=== PATIENT | male | born 1990 | race Caucasian/White ===

== ENCOUNTER 2020-06-04 04:16 | Observation (INO) ==
[2020-06-04] MEDS ORDERED: ONDANSETRON 4 MG/2 ML VIAL IV STA (04:43)
[2020-06-04] MEDS ORDERED: PANTOPRAZOLE 40 MG VIAL IV STA (04:43)
[2020-06-04] MEDS ORDERED: SODIUM CHLORIDE 0.9% 1,000 ML IV STA ×3 (04:43→06:50)
[2020-06-04 05:08] LABS: Basophils % 0.3 % (0.0-0.8); Eosinophils % 0.3 % (0.00-10.9); Hematocrit 46.7 VOL% (42.0-52.0); Hemoglobin 16.9 GM/DL (14.0-18.0); Immature Granulocytes % 0.5 %; Immature Granulocytes Absolute 0.04 #; Lymphocytes # 2.8 10*3/uL (1.4-4.0); Lymphocytes % 31.3 % (21.2-54.2); Mean Corpuscular HGB Conc 36.2 GM/DL (32-36); Mean Corpuscular Volume 89.1 FL (87-102); Mean Platelet Volume 10.6 FL (9.6-12.0); Monocytes % 5.8 % (1.7-12.7); Neutrophils % 61.8 % (38.7-73.9); Platelet Count 316 T/CUMM (130-400); Red Blood Count 5.24 MC/CUMM (3.8-5.5); Red Cell Distribution Width 11.4 % (9.3-17.3); White Blood Count 8.9 T/CUMM (4-12)
[2020-06-04 05:25] LABS: Alanine Aminotransferase 43 U/L (16-61); Albumin 4.5 G/DL (3.4-5.0); Alkaline Phosphatase 91 U/L (45-117); Amylase 68 U/L (25-115); Aspartate Amino Transferase 28 U/L (0-37); Blood Urea Nitrogen 9 MG/DL (7-18); Calcium 9.8 MG/DL (8.5-10.1); Estimated Glom Filtration Rate 137 ML/MIN; Glucose 103 MG/DL (74-106); Osmolality,Calculated 281.1 MOS/KG (273-304)
[2020-06-04] MEDS ORDERED: HYDROmorphone 2 MG/1 ML VIAL IV ONE (05:26)
[2020-06-04] MEDS ORDERED: DICYCLOMINE 20 MG/2 ML AMP IM ONE (05:34)
[2020-06-04 07:57] LABS: Bilirubin,Urine Negative (Negative); Blood, Urine Negative (Negative); Glucose,Urine (UA) Negative (Negative); Ketones,Urine 20 mg/dL (Negative); Mucus,Urine Occasional /LPF (Occasional); Nitrite,Urine Negative (Negative); Protein,Urine Negative; RBC,Urine 2 /HPF (0-4); Urine Appearance CLEAR (Clear); Urine Color Yellow (Yellow); Urine Specific Gravity > 1.060 (1.001-1.035); Urine Urobilinogen < 2.0 EU/DL (0.2-1.0); WBC,Urine <1 /HPF (0-6)
[2020-06-04] MEDS ORDERED: PROMETHAZINE 25 MG/1 ML VIAL IM ONE (08:49)
[2020-06-04] MEDS ORDERED: hydrALAZINE 20 MG/1 ML VIAL IV PRN (08:52)
[2020-06-04] MEDS ORDERED: PROMETHAZINE 25 MG/1 ML VIAL IM PRN (08:52)
[2020-06-04] MEDS ORDERED: ONDANSETRON 4 MG/2 ML VIAL IV PRN (08:52)
[2020-06-04] MEDS ORDERED: GLUCAGON 1 MG VIAL IM PRN (08:52)
[2020-06-04] MEDS ORDERED: DEXTROSE 50% 25 GM/50 ML VIAL IV PRN (08:52)
[2020-06-04] MEDS: SODIUM CHLORIDE 0.9% 1,000 ML IV SCH ×2 (09:00→18:41)
[2020-06-04 09:19] LABS: Hematocrit 43.1 VOL% (42.0-52.0); Hemoglobin 15.2 GM/DL (14.0-18.0)
[2020-06-04] MEDS ORDERED: INFLUENZA VIRUS VACCINE 0.5 ML SYRINGE IM ONE (10:36)
[2020-06-04] MEDS ORDERED: ESCITALOPRAM 10 MG TABLET PO SCH ×2 (21:00→22:00)
[2020-06-04] MEDS: PANTOPRAZOLE 40 MG VIAL IV SCH (21:18)
[2020-06-04] MEDS ORDERED: ESCITALOPRAM 10 MG TABLET PO ONE (21:36)
[2020-06-05 02:00] LABS: Hematocrit 39.3 VOL% (42.0-52.0); Hemoglobin 13.6 GM/DL (14.0-18.0)
[2020-06-05] MEDS: SODIUM CHLORIDE 0.9% 1,000 ML IV SCH ×2 (05:00→09:54)
[2020-06-05 05:55] LABS: Basophils % 0.1 % (0.0-0.8); Eosinophils % 0.1 % (0.00-10.9); Hematocrit 39.9 VOL% (42.0-52.0); Hemoglobin 14.1 GM/DL (14.0-18.0); Immature Granulocytes % 0.4 %; Immature Granulocytes Absolute 0.04 #; Lymphocytes # 1.9 10*3/uL (1.4-4.0); Lymphocytes % 20.4 % (21.2-54.2); Mean Corpuscular HGB Conc 35.3 GM/DL (32-36); Mean Corpuscular Volume 93.4 FL (87-102); Monocytes % 6.4 % (1.7-12.7); Neutrophils % 72.6 % (38.7-73.9); Platelet Count 224 T/CUMM (130-400); Red Blood Count 4.27 MC/CUMM (3.8-5.5); Red Cell Distribution Width 11.4 % (9.3-17.3); White Blood Count 9.2 T/CUMM (4-12)
[2020-06-05 06:17] LABS: Albumin 3.3 G/DL (3.4-5.0); Calcium 8.4 MG/DL (8.5-10.1); Osmolality,Calculated 273.5 MOS/KG (273-304); Risk Ratio 4.73; Thyroid Stimulating Hormone 0.292 uIU/ml (0.358-3.74); Total Protein 6.2 G/DL (6.4-8.3)
[2020-06-05] MEDS ORDERED: ACETAMINOPHEN 325 MG TABLET PO ONE (07:39)
[2020-06-05 07:56] VITALS: BP 104/47
[2020-06-05] MEDS: PANTOPRAZOLE 40 MG VIAL IV SCH (08:09)
[2020-06-05] MEDS ORDERED: POTASSIUM CHLORIDE 20 MEQ TABLET PO ONE (09:00)
[2020-06-05] MEDS ORDERED: ESCITALOPRAM 10 MG TABLET PO SCH (21:00)
== END 2020-06-05 09:53 | disposition home or self-care (01) ==
LOC: N.EDINP 04:16 → N.ED 04:16 → SUATTDRO 08:00 → N.5E 10:04
PROVIDERS: ADMIT Internal Medicine; ATTEND Internal Medicine